=== PATIENT | female | born 1965 | race Caucasian/White ===

== ENCOUNTER 2017-06-24 08:00 | Inpatient (IN) | payer OTHER ==
[~2017-06-24] VITALS: Ht 170.2 cm; Wt 79.4 kg
[2017-06-24] MEDS ORDERED: SYNTHROID112 MCG PO (11:25)
[2017-06-24] MEDS ORDERED: MEDROL4 MG PO (11:25)
[2017-06-24] MEDS ORDERED: ATENOLOL50 MG PO (11:25)
[2017-06-24] MEDS ORDERED: GABAPENTIN800 MG PO (11:26)
== END 2017-07-03 17:07 | DRG 470 ==
LOC: O/R 07-01 05:55 → SURG 07-01 05:55 → SURG-SUITE 07-01 07:00 → SURG 07-01 15:21
PROVIDERS: Orthopaedic Surgery
PROC: 0SRC0J9 Replacement of Right Knee Joint with Synthetic Substitute, Cemented, Open Approach (ICD-10-PCS; principal; 2017-07-01 07:00)
DX: M17.11 Unilateral primary osteoarthritis, right knee (principal); D62 Acute posthemorrhagic anemia; I10 Essential (primary) hypertension; E03.8 Other specified hypothyroidism; M79.7 Fibromyalgia; M06.89 Other specified rheumatoid arthritis, multiple sites